=== PATIENT | male | born 1970 | race Caucasian/White ===

== ENCOUNTER 2018-07-22 13:12 | Emergency (ER) | payer OTHER ==
[~2018-07-22] VITALS: Ht 180.3 cm; Wt 86.2 kg
[2018-07-22 13:20] VITALS: BP 141/102
--- NOTE | 2018-07-22 14:57 | PHYS DOC ---
Past History Past Medical History: No Pertinent History Past Surgical History: Other Alcohol Use: None Drug Use: Methamphetamine Adult General Chief Complaint Chief Complaint: DEPRESSION HPI HPI Patient is a 47 year old male who presents with complaining of depression. Patient states he was incarcerated for 5 years and discharged to have the house in March of this year. Patient complaining of depression for a long time that gradually getting force. Patient denies suicidal and homicidal ideation and hallucination. Patient states he is using methamphetamine for the last 10 years alternating. [facility] plans to make an appointment with [facility] for the patient. Review of Systems Review of Systems Constitutional: Denies fever or chills [] Eyes: Denies change in visual acuity, redness, or eye pain [] HENT: Denies nasal congestion or sore throat [] Respiratory: Denies cough or shortness of breath [] Cardiovascular: No additional information not addressed in HPI [] GI: Denies abdominal pain, nausea, vomiting, bloody stools or diarrhea [] : Denies dysuria or hematuria [] Musculoskeletal: Denies back pain or joint pain [] Integument: Denies rash or skin lesions [] Neurologic: Denies headache, focal weakness or sensory changes [] Endocrine: Denies polyuria or polydipsia [] All other systems were reviewed and found to be within normal limits, except as documented in this note. Allergies Allergies Allergies Coded Allergies Type Severity Reaction Last Updated Verified No Known Drug Allergies 07/22/18 No Physical Exam Physical Exam Constitutional: Well developed, well nourished, no acute distress, non-toxic appearance. [] HENT: Normocephalic, atraumatic Eyes: PERRLA, EOMI, conjunctiva normal, no discharge. [] Neck: Normal range of motion, no tenderness, supple, no stridor. [] Cardiovascular:Heart rate regular rhythm, no murmur [] Lungs & Thorax: Bilateral breath sounds clear to auscultation [] Abdomen: Bowel sounds normal, soft, no tenderness, no masses, no pulsatile masses. [] Skin: Warm, dry, no erythema, no rash. [] Back: No tenderness, no CVA tenderness. [] Extremities: No tenderness, no cyanosis, no clubbing, ROM intact, no edema. [] Neurologic: Alert and oriented X 3, normal motor function, normal sensory function, no focal deficits noted. [] Psychologic: Affect normal, judgement normal, mood normal. [] Current Patient Data Vital Signs Vital Signs Date Time Temp Pulse Resp B/P (MAP) Pulse Ox O2 Delivery O2 Flow Rate FiO2 07/22/18 13:20 98.1 76 18 98 Room Air EKG EKG [] Radiology/Procedures Radiology/Procedures [] Course & Med Decision Making Course & Med Decision Making Evaluation of patient in ER showed 47-year-old male patient presented to ER with complaining of depression for a long time because of suicidal and homicidal ideation. Patient refused to give urine sample. Patient is a resident of [facility] and the plan to make an appointment with [facility]. Instructed to quit using drugs and smoking cigarettes and follow up with his appointment with psychiatric center. Dragon Disclaimer Dragon Disclaimer This electronic medical record was generated, in whole or in part, using a voice recognition dictation system. Departure Departure: Impression: Primary Impression: Depression Additional Impressions: Substance abuse Tobacco abuse Disposition: HOME, SELF-CARE (at 1455) Condition: STABLE Referrals: PCP,NO (PCP) Patient Instructions: Depression, Adult, Methamphetamine Abuse, Complications, Smoking Cessation, Tips For Success Additional Instructions: Follow-up with [facility] Follow-up with your primary care physician in 3-5 days Return to ER if not getting better Problem Qualifiers LORETTA STEPHEN MD Jul 22, 2018 14:57
== END 2018-07-22 15:07 | disposition home or self-care (01) ==
LOC: ER 13:12
DX: F32.9 Major depressive disorder, single episode, unspecified (principal); F15.10 Other stimulant abuse, uncomplicated; Z72.0 Tobacco use
CPT/HCPCS: 99281